=== PATIENT | male | born 1955 | race Caucasian/White ===

== ENCOUNTER → 2019-03-04 08:19 | Outpatient (CLI) | payer BC ==
--- NOTE | 2019-03-09 10:41 | ST ---
PATIENT:KLEVER JESUS MEDICAL RECORD: [id number] SEX: M LOCATION:[facility] ORDER #: ADMISSION DATE: 03/04/19 AGE OF PATIENT: 63 REFERRING PHYSICIAN: INTERPRETING PHYSICIAN: MICHAEL BOLIVAR MD DATE OF SERVICE: 03/04/2019 PROCEDURE: Nuclear stress test. INDICATIONS: Angina, shortness of breath, hypertension. The patient was exercised on standard Lexiscan protocol with 31 mCi of sestamibi injected at peak stress, 10 mCi used previously for rest images. FINDINGS: Gated SPECT reveals preserved ejection fraction at 60% with decreased thickening and brightening throughout the inferior segments. SPECT Imaging: Cardiolite was used as myocardial perfusion agent. There is a fixed perfusion defect inferiorly compatible with previous inferior myocardial infarction. There is no evidence of reversible ischemia, in fact the defect improved showing reverse redistribution with stress. The remaining segments with homogeneous uptake at rest and stress. OVERALL IMPRESSION: This is a minimally abnormal nuclear stress test only showing a fixed perfusion defect inferiorly. No ongoing ischemia for ejection fraction preserved at 60%. TRANSINT:[id number] Voice Confirmation ID: [id number] DOCUMENT ID: [id number] MICHAEL BOLIVAR MD at 1041 CC: KAYLI SIMEON [id number] DICTATION DATE: 03/08/19 0857 GOVERNMENT EMPLOYEE: 03/09/19 0446 [facility] CLI 03/04/[address] [id number]
== END | disposition home or self-care (01) ==
LOC: D.HCCARDIO 08:19
PROVIDERS: ATTEND Internal Medicine Interventional Cardiology
DX: I20.9 Angina pectoris, unspecified (principal)